=== PATIENT | male | born 1965 | race Caucasian/White ===

== ENCOUNTER → 2017-09-27 | Outpatient (CLI) | payer OTHER ==
[~2017-09-27] MED LIST: ASPIR 8181 MG PO; ATORVASTATIN CA40 MG PO; BRILINTA90 MG PO; LISINOPRIL-HCT1 EAC2 PO; LOPRESSOR25 PO; NITROGLYCERIN0.4 MG SL; PANTOPRAZOLE SO40 M1 PO
[2017-09-27 08:49] LABS: CHOLESTEROL 105 mg/dL (<200); HDL CHOLESTEROL 23 mg/dL (>40); LDL CHOLESTEROL 45 mg/dL (<100); TC:HDL 4.6 Ratio (Not establshd); TRIGLYCERIDE 186 mg/dL (<150); VLDL 37 mg/dL (<40)
[2017-09-27 08:50] LABS: SERUM ASSESSMENT Clear
== END ==
LOC: M.LAB 08:17
PROVIDERS: Internal Medicine Cardiovascular Disease
DX: E78.2 Mixed hyperlipidemia (principal); I10 Essential (primary) hypertension; Z87.891 Personal history of nicotine dependence

== ENCOUNTER 2018-10-03 17:29 | Observation (INO) | payer OTHER ==
[~2018-10-03] VITALS: Ht 177.8 cm; Wt 94.3 kg
[~2018-10-03 17:29] MED LIST changes: -ATORVASTATIN CA40 MG PO; +LIPITOR40 MG PO
[2018-10-03 17:31] VITALS: BP 95/63
[2018-10-03] MEDS ORDERED: ONE DAILY FOR1 EACH PO (17:36)
[2018-10-03 17:59] LABS: ABSOLUTE BASOPHILS 0.1 thou/uL (0.0-0.2); ABSOLUTE EOSINOPHILS 0.1 thou/uL (0.0-0.7); ABSOLUTE LYMPHOCYTES 2.2 thou/uL (0.8-5.3); ABSOLUTE NEUTROPHILS 6.1 thou/uL (1.6-8.1); BASOPHILS 0.7 %; EOSINOPHILS 0.8 %; HEMATOCRIT 41.5 % (42.0-52.0); HEMOGLOBIN 14.6 gm/dL (14.0-18.0); LYMPHOCYTES 23.7 %; MCH 32.1 pg (26.0-34.0); MCHC 35.3 g/dL (28.0-37.0); MONOCYTES 10.4 %; NUCLEATED RBCS 0 /100WBC; PLATELET COUNT* 298 thou/uL (150-400); POLYS 64.4 %; RBC 4.56 mil/uL (4.50-6.00); WBC 9.5 thou/uL (4.0-11.0)
[2018-10-03 18:06] LABS: ANION GAP 10 mmol/L (7-16); BUN 16 mg/dL (7-18); CALCIUM 9.7 mg/dL (8.5-10.1); CHLORIDE 100 mmol/L (98-107); CO2 28 mmol/L (21-32); CREATININE 0.9 mg/dL (0.6-1.3); GLUCOSE 105 mg/dL (70-99); SODIUM 138 mmol/L (136-145)
[2018-10-03 18:22] LABS: ALBUMIN 3.9 g/dL (3.4-5.0); ALKALINE PHOSPHATASE 97 U/L (46-116); LIPASE 82 U/L (73-393); MAGNESIUM 1.9 mg/dL (1.8-2.4); NT-PRO BRAIN NAT PEPTIDE 29 pg/mL (<300); SGOT 30 U/L (15-37); SGPT 51 U/L (30-65); TOTAL BILIRUBIN 0.6 mg/dL (<0.1-1.0); TOTAL PROTEIN 7.5 g/dL (6.4-8.2); TROPONIN-I LEVEL <0.06 ng/mL (<0.06)
[2018-10-03 19:15] VITALS: BP 111/57
[2018-10-03 19:30] VITALS: BP 129/76
[2018-10-03] MEDS ORDERED: PROTONIX40 M1 PO (20:51)
[2018-10-03] MEDS ORDERED: CO Q-10100 MG PO (20:51)
[2018-10-03] MEDS ORDERED: TYLENOL325 MG PO (20:52)
[2018-10-04 00:20] VITALS: BP 96/55
[2018-10-04 05:15] VITALS: BP 105/69
[2018-10-04 08:00] VITALS: BP 115/66
--- NOTE | 2018-10-04 10:38 | EKG ---
[place] [address] ELECTROCARDIOGRAM REPORT Name: CARLOS VILLA Room: [address] IN [facility]#: [id number] Admission: 10/03/18 Attend Phys: Alexei Reese MD Discharge: Date of : 61 Report #: [id number] THIS REPORT FOR: //name// [facility] ED Test Date: 2018-10-03 Test Time: 17:32:21 Pat Name: CARLOS VILLA Department: Room: 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 : 1965 Requested By: Rommel Palacios Order Number: [id number] MD: Clinton Rosales Measurements Intervals [place] Rate: 94 P: 15 UT: 150 QRS: -28 QRSD: 104 T: 19 QT: 365 QTc: 457 Interpretive Statements Sinus rhythm Borderline left axis deviation Abnormal R-wave progression, late transition Inferior infarct, old Compared to ECG 11/10/2013 07:36:04 No significant changes noted Electronically Signed On 10-04-2018 10:38:16 CDT by Clinton Rosales [email or web address] <ELECTRONICALLY SIGNED> By: Clinton Rosales MD, FACC 10/04/18 1038 1732 1732 Clinton Rosales MD, FAC /EPI
[2018-10-04 11:58] VITALS: BP 115/66
--- NOTE | 2018-10-05 09:14 | CON ---
[address] [address] CONSULTATION Name: CARLOS VILLA Constantin Room: [address] Dima Wilson#: [id number] Admission: 10/03/18 Attend Phys: Alexei Reese MD Discharge: 10/04/18 Date of : 61 Report #: [id number] THIS REPORT FOR: //name// CC: Alexei Rosales INDICATION: Chest pain. HISTORY OF PRESENT ILLNESS: The patient is a very pleasant 52-year-old gentleman with history of coronary artery disease. He had myocardial infarction in 2013. At that time, he had percutaneous coronary intervention to a diagonal branch of the LAD system. The LAD was noted to be totally occluded in its mid portion and filled faintly by left to left collaterals. He has had previous intervention to the circumflex coronary artery. Right coronary artery is small and nondominant. He has preserved left ventricular systolic function. Stress testing in 2015 showed normal LV function and no evidence of ischemia. Cardiac risk factors include dyslipidemia, hypertension and tobacco use. The patient had an episode of midsternal chest discomfort that lasted for approximately an hour and a half to two hours yesterday. This was associated with some diaphoresis and shortness of breath. There was no radiation. The patient was admitted to the Emergency Room. Initial EKG showed no acute ST or T-wave abnormalities. Cardiac enzymes are less than 0.06 x 3. The patient's symptoms resolved. He has had no further symptoms in the hospital. 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 He was not having any difficulties with this. He is without other cardiac complaint at this time. PAST MEDICAL HISTORY: 1. Coronary artery disease as outlined above. 2. Hyperlipidemia. 3. Hypertension. 4. Tobacco use. PAST SURGICAL HISTORY: 1. Appendectomy. 2. Knee surgery. 3. Tonsillectomy. FAMILY HISTORY: Positive for coronary artery disease. SOCIAL HISTORY: The patient smokes tobacco cigarettes. He [place] [address] CONSULTATION Name: REYNA VILLASAVANNAH Killian Room: [address] Katie#: [id number] Admission: 10/03/18 Attend Phys: Alexei Reese MD Discharge: 10/04/18 Date of : 61 Report #: [id number] ALLERGIES: None documented. CURRENT MEDICATIONS: Tylenol p.r.n., aspirin 81 mg daily, atorvastatin 40 mg at bedtime, CoQ10 100 mg daily, lisinopril/hydrochlorothiazide 20/25 mg 1 tablet daily, metoprolol tartrate 25 mg b.i.d., multivitamin 1 tablet daily, Nitrostat p.r.n. and Protonix 40 mg b.i.d. REVIEW OF SYSTEMS: Positive for chest discomfort as outlined above. A 14-point review of systems otherwise unremarkable. PHYSICAL EXAMINATION: VITAL SIGNS: Stable. Blood pressure 115/66 and pulse 65 and regular. GENERAL: This is a pleasant gentleman, in no distress. Mood and affect appropriate. HEENT: Extraocular muscles intact. Mucous membranes are moist. NECK: Shows no jugular venous distention. There are no carotid bruits. CHEST: Reveals clear lung luna without wheezes or rales. CARDIOVASCULAR: Reveals a regular rhythm without gallop or murmur. ABDOMEN: Reveals normal bowel sounds. The abdomen is soft and nontender. EXTREMITIES: Shows no edema. SKIN: Warm and dry. IMPRESSION AND RECOMMENDATIONS: 1. Atypical chest pain. The patient ruled out for myocardial infarction. I believe he could follow up as an outpatient with Cardiology. 2. Coronary artery disease, presently stable. We would continue daily aspirin as he is doing. 3. Hypertension, adequately controlled on current antihypertensive regimen. 4. Hyperlipidemia. He has been at goal on atorvastatin 40 mg daily. I would continue this. 5. Tobacco abuse. Smoking cessation discussed and advised. 6. From a cardiac standpoint, the patient appears stable. I believe he could be discharged and followed up as an outpatient. <ELECTRONICALLY SIGNED> By: Clinton Rosales MD, FACC 10/05/18 0914 0853 [id number] Rosales MD, FACC /nt
== END 2018-10-04 12:50 | disposition home or self-care (01) ==
LOC: M.ERS 17:29 → M.TBA-ER 18:27 → M.ERS 18:27 → M.2W 19:03 → M.TBA-ER 19:03 → M.2W 19:03
PROVIDERS: Emergency Medicine Emergency Medical Services; ADMIT Internal Medicine
DX: R07.89 Other chest pain (principal); I25.10 Atherosclerotic heart disease of native coronary artery without angina pectoris; K21.9 Gastro-esophageal reflux disease without esophagitis; I10 Essential (primary) hypertension; E87.6 Hypokalemia; E78.5 Hyperlipidemia, unspecified; F17.210 Nicotine dependence, cigarettes, uncomplicated; Z79.82 Long term (current) use of aspirin; Z79.899 Other long term (current) drug therapy; Z95.5 Presence of coronary angioplasty implant and graft

== ENCOUNTER → 2018-10-19 | Outpatient (CLI) | payer OTHER ==
[~2018-10-19] MED LIST changes: +CO Q-10100 MG PO; +ONE DAILY FOR1 EACH PO; +PROTONIX40 M1 PO; +TYLENOL325 MG PO
[2018-10-19 07:44] LABS: CALCIUM 9.3 mg/dL (8.5-10.1); CREATININE 1.1 mg/dL (0.6-1.3); POTASSIUM 3.5 mmol/L (3.5-5.1)
== END ==
LOC: M.LAB 07:12
PROVIDERS: Nurse Practitioner
DX: E87.6 Hypokalemia (principal)

== ENCOUNTER → 2018-11-14 | Outpatient (CLI) | payer OTHER ==
--- NOTE | 2018-11-14 17:12 | CARDNUC ---
[place] [address] CARDIAC NUCLEAR IMAGING REPORT Name: DAISYCARLOSSAVANNAH CRAMER Room: [facility]#: [id number] Admission: 11/14/18 Attend Phys: Clinton Rosales, Discharge: Date of : 61 Date of Service: 11/14/18 1712 Report #: [id number] THIS REPORT FOR: //name// APPROVED REPORT Study performed: 11/14/2018 10:05:34 Exam: Nuclear Stress Test Indication: Chest pain Patient Location: Out-Patient Stress Tech: Cally Mclean Stress Nurse: Aaliyah Schmitz R.N. Ht: 5 ft 11 in Wt: 204 lbs BSA: 2.13 m2 BMI: 28.44 Medical History Medical History: Angina, CAD s/p TN, CAD s/p stent, HTN, Hyperlipidemia, Current Smoker, SOB. Medications: ASA 81 MG, ATORVASTATIN, LISINOPRIL-HCTZ, METOPROLOL, NTG. Allergies: No known drug allergies Cardiac Risk Factors: Age, Current Smoker, FHX of CAD, HTN, Hyperlipidemia, SOB. Previous Cardiac Procedures: Myocardial infarction, PCI. Pretest Chest Pain Characteristics: No chest pain Exercise History: Indeterminate Physical Disabilities: KNEE PAIN/BRACE. Meds Held (24 hrs): METOPROLOL, NTG. Stress Test Details Stress Test: Pharmacologic stress was paired with low level exercise. Reason for pharmacologic stress test: KNEE PAIN/BRACE.. HR Resting HR: 62 bpm Max Heart Rate (APMHR): 165 bpm Max HR Achieved: 120 bpm Target HR (85% APMHR): 140 bpm % of APMHR: 72 Recovery HR: 79 bpm BP Resting BP: 113/74 mmHg Max BP: 188/[place] [address] CARDIAC NUCLEAR IMAGING REPORT Name: CARLOS VILLA Room: [facility]#: [id number] Admission: 11/14/18 Attend Phys: Clinton Rosales, Discharge: Date of : 61 Date of Service: 11/14/18 1712 Report #: [id number] ECG Resting ECG: Sinus Rhythm Stress ECG: Sinus Tachycardia ST Change: None Arrhythmia: None Recovery ECG: Sinus Rhythm Recovery ST Change: None Recovery Arrhythmia: None Clinical Reason for Termination: Completed protocol Stress Symptoms: Dyspnea, Dizziness. Exercise duration: 4 min 00 sec Exercise capacity: 2.30 METs The patient tolerated Lexiscan infusion without significant cardiac symptoms. Nurse Comments 53 year old male presented for walking Lexiscan with left knee brace in place. Patient reports recent HX of CP. Patient tolerated walking Ama well. Recovery unremarkable with PO caffeine, effective. Patient was escorted by staff to Nuclear Medicine for images. Patient was stable with no complaints at that time. Stress ECG Conclusion The baseline 12-lead EKG show sinus rhythm without significant ST or T wave abnormality. EKGs obtained during and post Lexiscan infusion show sinus rhythm and sinus tachycardia without significant ST or T wave changes when compared to baseline. There were no stress-induced arrhythmias. NM EXAM: Myocardial Perfusion REST/STRESS Imaging Protocol: Rest Tc-99m/Stress Tc-99m 1 day Resting Data Rest SPECT myocardial perfusion imaging was performed in supine position 30 minutes following the intravenous injection of 10.5 mCi of Tc-99m Sestamibi. Time of rest injection: 08:45 The images were gated to evaluate regional wall motion and calculate left ventricular ejection fraction. Administration Route: IV Administration Site: Right Hand Pharmacologic Stress Pharmacologic stress test was performed by injecting Regadenoson 0.4 [place] [address] CARDIAC NUCLEAR IMAGING REPORT Name: CARLOS VILLA [facility] [id number] Admission: 11/14/18 Attend Phys: Clinton Rosales, Discharge: Date of : 61 Date of Service: 11/14/18 1712 Report #: [id number] IV push followed by the intravenous injection of 29.1 mCi of Tc-99m Sestamibi. Time of stress injection: 10:20 Administration Route: IV Administration Site: Right Hand Heart Rate at time of stress injection: 120 bpm. Gated Stress SPECT was performed 40 minutes after stress injection. The images were gated to evaluate regional wall motion and calculate left ventricular ejection fraction. Prone imaging was performed. Study Quality Study: Good Artifact: No artifact Study Data At rest, the left ventricular ejection fraction was 55%.. Post stress, the left ventricular ejection was 54%.. TID = 1.10. Perfusion There is a oorjx-ie-ukwldkpa size severe intensity reversible defect noted involving the apex and anteroseptal apical wall. No other significant fixed or reversible defects were identified. Wall Motion The apex and apical septum appear hypokinetic. Nuclear Conclusion ECG Findings: negative for ischemia Clinical Findings: negative for ischemia Nuclear Findings: positive for ischemia Exercise Capacity: not assessed Left Ventricular Function: preserved Myocardial perfusion images suggest stress-induced ischemia involving the apex and apical portion of the anteroseptal wall with preserved left ventricular systolic function. This is a moderate to high risk study. <Conclusion> The baseline 12-lead EKG show sinus rhythm without significant ST or T wave abnormality. EKGs obtained during and post Lexiscan infusion show sinus rhythm and sinus tachycardia without significant [place] [address] CARDIAC NUCLEAR IMAGING REPORT Name: CARLOS VILLA [facility] [id number] Admission: 11/14/18 Attend Phys: Clinton Rosales, Discharge: Date of : 61 Date of Service: 11/14/18 1712 Report #: [id number] wave changes when compared to baseline. There were no stress-induced arrhythmias. <ELECTRONICALLY SIGNED> By: Clinton Rosales MD, FACC 11/14/181711 11 11 Clinton Rosales MD, FACC /INF
== END ==
LOC: M.NUC 10-18 16:45
DX: I25.118 Atherosclerotic heart disease of native coronary artery with other forms of angina pectoris (principal); I10 Essential (primary) hypertension; E78.2 Mixed hyperlipidemia; E87.6 Hypokalemia; F17.200 Nicotine dependence, unspecified, uncomplicated; Z79.82 Long term (current) use of aspirin; Z79.899 Other long term (current) drug therapy

== ENCOUNTER → 2021-01-22 | Outpatient (CLI) | payer OTHER ==
--- NOTE | 2021-01-22 11:26 | EXE ---
[place] [address] STRESS ECHOCARDIOGRAM Name: CARLOS VILLA Room: [facility]#: [id number] Admission: 01/22/21 Attend Phys: Clinton Rosales, Discharge: Date of : 61 Date of Service: 01/22/21 1126 Report #: [id number] THIS REPORT FOR: cc: Gwen Miramontes MD, Cabot L. MD Blick, David R. MD [facility] ~ ADDENDUM APPROVED REPORT Study performed: 01/22/2021 10:49:22 Exam: Stress Echocardiogram Indication: CAD , Hypertension Patient Location: Out-Patient Stress Nurse: Shellie Drummond RN Supervising Physician: Tree Agosto MD Ht: 5 ft 10 in HR: 69 bpm BP: 114/65 mmHg Medical History Medical History: CAD, [place] Cardiac Risk Factors: Age,, Hyperlipidemia, HTN, Tobacco History (Current/Recent) Procedure The patient underwent an Exercise Stress Test using the Dewayne Protocol. Blood pressure, heart rate, and EKG were monitored. An Echocardiogram was performed by electronic sales and service technician in four stages in quad fashion. At peak stress, four selected images were obtained and placed side by side with resting images for comparison. Stress Test Details Stress Test: Exercise stress testing was performed using a Dewayne protocol. HR Resting HR: 69 bpm Max Heart Rate (APMHR): 163 bpm Max HR Achieved: 141 bpm Target HR (85% APMHR): 138 bpm % of APMHR: 86 Recovery HR: 100 bpm HR response to stress: Normal HR response to stress BP Resting BP: 114/65 mmHg Max BP: 190/[place] [address] STRESS ECHOCARDIOGRAM Name: CARLOS VILLA Room: [facility]#: [id number] Admission: 01/22/21 Attend Phys: Clinton Rosales, Discharge: Date of : 61 Date of Service: 01/22/21 1126 Report #: [id number] Recovery BP: 144/101 mmHg BP response to stress: Normal blood pressure response to stress. ECG Resting ECG: Sinus Rhythm Stress ECG: Sinus Tachycardia ST Change: None Maximum ST Deviation: 0 mm Arrhythmia: None Recovery ECG: Sinus Rhythm Recovery ST Change: None Recovery ST Deviation: 0 mm Recovery Arrhythmia: None Clinical Reason for Termination: Knee pain Exercise duration: 9 min 35 sec Highest Stage Achieved: Stage 3: 3.4 mph at 14% grade. Exercise capacity: 11.26 METs Pre-Stress Echo The resting Echocardiogram showed normal left ventricular contractility with an estimated Ejection Fraction of about 60-65%. The resting echocardiogram demonstrated normal wall motion in all wall segments. Post-Stress Echo The stress Echocardiogram showed normal left ventricular contractility with an estimated Ejection Fraction of about 65-70%. Compared to rest, there were no stress-induced wall motion abnormalities. Conclusion Clinical Response: Non-ischemic Exercise Capacity: Superior Stress ECG Response: Non-ischemic Stress Echo Images: Non-ischemic low risk stress echo for predicting future cardiac events. Other Information Study Quality: [place] [address] STRESS ECHOCARDIOGRAM Name: CARLOS VILLA Room: [facility]#: [id number] Admission: 01/22/21 Attend Phys: Clinton Rosales, Discharge: Date of : 61 Date of Service: 01/22/21 1126 Report #: [id number] <Conclusion> low risk stress echo for predicting future cardiac events. <ELECTRONICALLY SIGNED> By: Tree Agosto MD, FACC 01/22/211125 25 25 Tree Agosto MD, FACC /INF
== END ==
LOC: M.CRD 09:25
PROVIDERS: ATTEND Internal Medicine Cardiovascular Disease
DX: I25.118 Atherosclerotic heart disease of native coronary artery with other forms of angina pectoris (principal); I10 Essential (primary) hypertension